=== PATIENT | male | born 1970 | race Caucasian/White ===

== ENCOUNTER 2024-01-15 20:16 | Emergency (ER) | payer SELFPAY ==
[2024-01-15 20:23] VITALS: BP 164/105
[2024-01-16] MEDS: ADACEL 0.5 ML IM (01:20)
[2024-01-16 02:29] LABS: % Basophils 0.6 % (0-2); % Immature Granulocytes 0.1 % (0-0.5); % Lymphocytes 28.1 % (20.5-51.1); % Neutrophils 58.2 % (42.2-75.2); Absolute Basophils 0.1 10^3/uL (0-0.2); Absolute Eosinophils 0.2 10^3/uL (0-0.7); Absolute Lymphocytes 2.2 10^3/uL (1.2-3.4); Absolute Monocytes 0.9 10^3/uL (0.1-0.6); Absolute Neutrophils 4.6 10^3/uL (1.4-6.5); Hematocrit 38.7 % (39.0-52.0); Hemoglobin 13.1 g/dL (13.0-18.0); Mean Corp Hgb Conc. 33.9 g/dL (33.0-37.0); Mean Corpuscular Hgb 27.8 pg (27.0-31.0); Mean Corpuscular Volume 82.2 fL (80.0-94.0); Mean Platelet Volume 9.6 fL (7.4-10.4); Nucleated Red Blood Cells % 0 % (-); Platelet Count 218 10^3/uL (130-400); Red Blood Cell Count 4.71 10^6/uL (4.70-6.10); Red Cell Dist. Width 13.9 % (11.5-14.5); White Blood Cell Count 7.9 10^3/uL (4.8-10.8)
[2024-01-16 02:40] LABS: ALT (SGPT) 25 U/L (0-50); AST (SGOT) 27 U/L (17-59); Albumin 3.5 g/dl (3.5-5.0); Alkaline Phosphatase 65 U/L (38-126); Blood Urea Nitrogen 25 mg/dl (9-20); Calcium 8.7 mg/dl (8.4-10.2); Carbon Dioxide 24 mmol/L (22-30); Chloride 108 mmol/L (98-107); Glucose 109 mg/dl (70-99); Potassium 3.8 mmol/L (3.5-5.1); Sodium 137 mmol/L (135-145); Total Bilirubin 0.3 mg/dl (0.2-1.3); Total Protein 6.1 g/dl (6.3-8.2); eGFR > 60.00
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
[2024-01-16] MEDS: AUGMENTIN 875 MG/125 MG 1 TABLET PO (03:22)
[2024-01-16] MEDS: MOTRIN 400 MG PO (03:27)
[2024-01-16 03:29] VITALS: BP 143/89
[2024-01-16 18:54] LABS: Hepatitis B Surface Antigen Negative (Negative)
[2024-01-16 19:11] LABS: Hepatitis B Surface Antibody Positive; Hepatitis C Antibody Negative (Negative)
[2024-01-16 21:11] LABS: Hepatitis B Core Ab, IgM Negative (Negative)
[2024-01-17 02:01] LABS: HIV Combo Negative (Negative)
[2024-01-17 14:53] LABS: Syphilis/T. pallidum Ab Reflex Negative (Negative)
== END 2024-01-16 03:41 | disposition home or self-care (01) ==
LOC: EMR 20:16
PROVIDERS: EMERGENCY PHYSICIAN Emergency Medicine
DX: S02.92XA Unspecified fracture of facial bones, initial encounter for closed fracture (principal); Y04.0XXA Assault by unarmed brawl or fight, initial encounter; Y04.1XXA Assault by human bite, initial encounter; I10 Essential (primary) hypertension; Z23 Encounter for immunization
CPT/HCPCS: 99285; 90471; 70450; 70486; 80053; 85025; 86705; 86706; 86780; 86803; 87340; 87389; 90715